=== PATIENT | female | born 1995 | race Caucasian/White ===

== ENCOUNTER 2018-04-30 07:10 | Day surgery (SDC) | payer OTHER ==
[2018-04-25 12:05] VITALS: BMI 20.5
[2018-04-30] MEDS ORDERED: ROPIVACAINE HCL 0.5% 30ML VIAL ONE (07:24)
[2018-04-30] MEDS ORDERED: DESFLURANE GAS 240 ML BOTTLE IH ONE (09:33)
[2018-04-30] MEDS ORDERED: ONDANSETRON 4 MG/2 ML VIAL ONE (10:33)
[2018-04-30 11:21] VITALS: TEMP 97.7
[2018-04-30] MEDS ORDERED: oxyCODONE HCL 5 MG TABLET PO PRN (11:54)
[2018-04-30] MEDS ORDERED: ONDANSETRON 4 MG/2 ML VIAL IVPUSH PRN (11:54)
[2018-04-30] MEDS ORDERED: LACTATED RINGERS SOLUTION 1,000 ML IV SCH (12:00)
[2018-04-30 12:19] VITALS: BP 108/66; PULSE 64
--- NOTE | 2018-05-04 10:22 | OP ---
DATE OF OPERATION: 04/30/2018 PREOPERATIVE DIAGNOSES: Right wrist internal derangement and dorsal ganglion cyst. POSTOPERATIVE DIAGNOSES: Right wrist internal derangement and dorsal ganglion cyst. OPERATIVE PROCEDURE: 1. Right wrist operative arthroscopy with debridement of triangular fibrocartilage complex partial tear. 2. Right wrist excision of ganglion. SURGEON: Jj Mata MD MACHINE ACCOUNTANT: RENAE Osorio ANESTHESIA: General. COMPLICATIONS: None. ESTIMATED BLOOD LOSS: Minimal. INDICATION FOR PROCEDURE: The patient is a 22-year-old female with the above finding indicated for operative treatment. Risks, benefits, alternatives were discussed with her at length and proper informed consent was obtained. PROCEDURE: After proper identification of patient, correct operative site, patient brought to the operating room and placed supine on the operating table with prominences well-padded. General anesthesia was provided by the Anesthesia Staff throughout the procedure. Intravenous antibiotics were given, timeout procedure was performed. The right upper extremity was prepped and draped in the usual sterile fashion and a well-padded tourniquet was placed over the sterile prep. Esmarch bandage was used to exsanguinate the right upper extremity and tourniquet was inflated to 250 mmHg. Wrist arthroscopy traction tower was used to 10 pounds of in-line traction throughout the procedure. All points of contact were well-padded and secured. Then, 3/4 and 4/5 portals were made. Both portals were made with skin incision only and blunt dissection down to the joint capsule. A 2.7-mm gravity and scope was used throughout the procedure. The radiocarpal joint was observed and found to be free of articular defects. The scapholunate ligament and the quetral ligament were found to be intact as well as the volar, radiocarpal, and ulnocarpal ligaments. Mild fraying of the central portion of the TFCC was noted and this was debrided. Trampoline effect remained in place. Significant dorsal synovitis was noted and the stalk of the ganglion cyst was noted. The synovitis was excised and the stalk of the ganglion cyst was excised with mechanical shaver. The wound was irrigated with copious amounts of normal saline and repaired with 5-0 nylon sutures. Sterile dressings were applied. Neal Hodges, the assistant professor of biochemistry, was integral throughout the procedure. The procedure could not have been performed without a skilled operative assistant professor of biochemistry. Lauri THAYER/[id number]
== END 2018-04-30 11:45 | disposition home or self-care (01) ==
LOC: FASU 07:10
PROVIDERS: ATTEND Orthopaedic Surgery Hand Surgery
PROC: 0LB50ZZ Excision of Right Lower Arm and Wrist Tendon, Open Approach (ICD-10-PCS; 2018-04-30)
PROC: 0MB54ZZ Excision of Right Wrist Bursa and Ligament, Percutaneous Endoscopic Approach (ICD-10-PCS; principal; 2018-04-30 08:30)
DX: M24.831 Other specific joint derangements of right wrist, not elsewhere classified (principal); M67.431 Ganglion, right wrist
CPT/HCPCS: 84703; 94760